=== PATIENT | male | born 1985 | race Caucasian/White ===

== ENCOUNTER 2017-04-25 17:16 | Inpatient (IN) | payer OTHER, MEDICAID ==
[~2017-04-25] VITALS: Ht 167.6 cm; Wt 73.0 kg
--- NOTE | 2017-04-25 17:53 | NUR ---
ADMISSION NOTE Received patient from [facility] via gurney, received report from ISAK JAVIER. Patient admitted with diagnosis of HYPOSPADIAS, POSSIBLE UTI, POSSIBLE PENILE INFECTION. Patient oriented to hospital routine, call light, toileting and safety-patient verbalized understanding.
[2017-04-25 18:00] VITALS: BP_SYST 199
--- NOTE | 2017-04-25 18:22 | NUR ---
CONSULTATION PAGED REASON FOR CONSULTATION:PENILE LACAERATION WAS CONSULT CALLED?:Y PERSON WHO WAS NOTIFIED:ANDRÉS CONSULTING PHYSICIAN:ASHLY LUCIANO (WILNER BLANCHARD SLITTER SCORER CUT OFF OPERATOR) EYE CLINIC MANAGER SPECIALTY:UROLOGY EYE CLINIC MANAGER PHONE NUMBER:[phone] REQUESTING PHYSICIAN:ROD CRUZ
[2017-04-25] MEDS ORDERED: POTASSIUM CHLORIDE 10 MEQ TAB.PRT.SR PO PRN (18:30)
[2017-04-25] MEDS ORDERED: ACETAMINOPHEN 325 MG TABLET PO PRN (18:30)
[2017-04-25] MEDS ORDERED: MAGNESIUM SULFATE 50 ML IV PRN (18:30)
[2017-04-25] MEDS ORDERED: HYDR-4100 PO (18:44)
[2017-04-25] MEDS ORDERED: METO25TA6 PO (18:44)
[2017-04-25] MEDS ORDERED: CAT.2 PO (18:44)
[2017-04-25] MEDS ORDERED: LORA-259 PO (18:44)
[2017-04-25] MEDS ORDERED: DULO60CA41 PO (18:44)
[2017-04-25] MEDS ORDERED: SEVE800T8 PO (18:44)
[2017-04-25] MEDS ORDERED: GABA-531 PO (18:44)
[2017-04-25 18:54] LABS: BASOPHILS # (AUTO) 0.1 K/uL (0.0-0.2); BASOPHILS % (AUTO) 0.8 % (0.0-2.0); EOSINOPHILS # (AUTO) 0.5 K/uL (0.0-0.4); EOSINOPHILS % (AUTO) 4.3 % (0.0-4.0); HEMATOCRIT 36.4 % (36-54); HEMOGLOBIN 11.8 g/dL (14.0-18.0); LYMPHOCYTES # (AUTO) 1.4 K/uL (1.0-5.5); LYMPHOCYTES % (AUTO) 12.3 % (20.5-51.5); MEAN CORPUSCULAR HEMOGLOBIN 28 pg (27-31); MEAN CORPUSCULAR HGB CONC 32 % (32-36); MEAN CORPUSCULAR VOLUME 87 fL (79.0-98.0); MONOCYTES # (AUTO) 0.9 K/uL (0.0-1.0); MONOCYTES % (AUTO) 8.3 % (1.7-9.3); NEUTROPHILS # (AUTO) 8.5 K/uL (1.8-7.7); NEUTROPHILS % (AUTO) 74.3 % (40.0-70.0); PLATELET COUNT (AUTO) 444 K/uL (130-430); RED BLOOD CELL COUNT(AUTO) 4.16 MIL/uL (4.2-6.2); RED CELL DISTRIBUTION WIDTH 16.3 % (9.0-15.0); WHITE BLOOD COUNT (AUTO) 11.4 K/uL (4.8-10.8)
[2017-04-25 18:59] LABS: CALCIUM 9.2 mg/dL (8.4-11.0); CREATININE 5.83 mg/dL (0.55-1.30)
[2017-04-25] MEDS ORDERED: cloNIDine HCL 0.2 MG TABLET PO PRN (19:00)
[2017-04-25 19:04] LABS: ALBUMIN 2.3 g/dL (3.4-4.8); TOTAL BILIRUBIN 0.4 mg/dL (0.0-1.0); TOTAL PROTEIN, SERUM 7.5 g/dL (6.4-8.3)
[2017-04-25 19:23] LABS: POTASSIUM 5.8 mmol/L (3.5-5.1)
[2017-04-25 20:00] VITALS: BP_SYST 176
--- NOTE | 2017-04-25 20:00 | NUR ---
Rounds Received patient lying in bed c/o severe pain to penis area and left leg. B/P elevated. IV site checked need new IV access due to IV cath was out. Explained to patient that i need to insert new IV line, patient verbalizes understanding. Instructed patient to call nurse when getting out of bed, call light within reach, bed alarm on.
--- NOTE | 2017-04-25 20:05 | NUR ---
IV RE-INSERTION: IV cath out. Restarted on Left hand. Successful after x1 attempts. Will observe for any signs of infiltration.
[2017-04-25] MEDS: MORPHINE 4 MG/ML INJ. SYRINGE IVP PRN ×2 (20:09→23:47)
[2017-04-25] MEDS: cloNIDine HCL 0.2 MG TABLET PO PRN (20:41)
--- NOTE | 2017-04-25 20:41 | NUR ---
B/P 176/116, Hr 73 Patient B/P 176/116, Hr 73 prn clonidine and schedule Lopressor given will monitor. patient c/o pain at this time, no acute distress noted.
[2017-04-25] MEDS: cefTRIAXone 1 GM in D5W 50 ML IV SCH (20:56)
[2017-04-25] MEDS ORDERED: METOPROLOL TARTRATE 25 MG TABLET PO SCH (21:00)
--- NOTE | 2017-04-25 21:03 | NUR ---
C/O itching Patient c/o itching informed Dr Reid new order received to give Benadryl 25mg po Q6hour prn for itching. and also informed Dr Reid regarding latest lab result, call Dr Culp (nephro) per Dr Reid.
--- NOTE | 2017-04-25 21:04 | NUR ---
CONSULTATION PAGED REASON FOR CONSULTATION:END STAGE RENAL WAS CONSULT CALLED?:Y PERSON WHO WAS NOTIFIED:SENTHIL CONSULTING PHYSICIAN:DOCTOR BARCENAS ( DOCTOR ALAN IS WATER TAXI CAPTAIN) DYE MAKER SPECIALTY:NEPHRO DYE MAKER PHONE NUMBER: REQUESTING PHYSICIAN:
[2017-04-25] MEDS: DIPHENHYDRAMINE HCL 25 MG CAPSULE PO PRN (21:08)
--- NOTE | 2017-04-25 22:00 | NUR ---
Medication First dose Rocephin IVPB completed no adverse reaction noted. will monitor.
[2017-04-25] MEDS ORDERED: hydrALAZINE HCL 25 MG TABLET PO ONE (22:30)
--- NOTE | 2017-04-25 22:44 | NUR ---
Notes Informed Dr Miranda (Nephro) regarding Lab result order received to call [facility] dialysis nurse in a.m. Charge nurse and hothouse worker made aware.
[2017-04-25 23:40] VITALS: BP_SYST 199
--- NOTE | 2017-04-26 00:10 | NUR ---
Dr Reid Informed Dr Reid that patient is diabetic and patient requesting for blood sugar check order received to do accu check ac and hs and regular insulin with sliding scale.
--- NOTE | 2017-04-26 00:10 | NUR ---
B/P elevated Patient B/P 180/111, Hr 67 hydralazine given per MD order. Dr Reid made aware of patient elevated b/p. will continue to monitor.
--- NOTE | 2017-04-26 00:23 | NUR ---
Blood sugar Blood sugar checked per patient request. Blood sugar 172. snack provided per patient request. patient ate 100% turkey sandwich and cracker. will monitor.
[2017-04-26] MEDS: INSULIN REGULAR, HUMAN 100 UNITS/ML, 10 ML VIAL (novoLIN R) SUBCUT PRN ×5 (00:28→21:16)
[2017-04-26] MEDS: MORPHINE 4 MG/ML INJ. SYRINGE IVP PRN ×5 (03:06→17:33)
[2017-04-26] MEDS: DIPHENHYDRAMINE HCL 25 MG CAPSULE PO PRN ×2 (03:16→21:20)
[2017-04-26] MEDS: cloNIDine HCL 0.2 MG TABLET PO PRN (03:16)
--- NOTE | 2017-04-26 03:19 | NUR ---
Blood pressure patient B/P 166/101 Hr 63 Clonidine given will monitor for effectiveness.
[2017-04-26 03:44] VITALS: BP_SYST 156
--- NOTE | 2017-04-26 04:33 | NUR ---
Rounds Patient resting quietly, call light within reach.
[2017-04-26] MEDS: hydrALAZINE HCL 25 MG TABLET PO SCH ×3 (05:58→21:17)
--- NOTE | 2017-04-26 06:13 | NUR ---
Blood sugar Patient blood sugar 60 apple juice and cracker given patient ate 100%. will check blood sugar later. no acute distress noted.
--- NOTE | 2017-04-26 07:06 | NUR ---
Re-checked blood sugar Re-checked patient blood sugar it went up to 84. informed Dr Reid regarding low blood sugar new order received hypoglycemia protocol. Charge nurse made aware.
[2017-04-26] MEDS ORDERED: D5W 1,000 ML IV PRN (07:12)
[2017-04-26] MEDS ORDERED: GLUCOSE 15 GM GEL (in 37.5 GM TUBE) PO PRN ×2 (07:15)
[2017-04-26] MEDS ORDERED: DEXTROSE 50% JECT 50 ML DISP.SYRIN IVP PRN ×2 (07:15)
[2017-04-26 07:33] LABS: CALCIUM 8.8 mg/dL (8.4-11.0); CREATININE 6.39 mg/dL (0.55-1.30); POTASSIUM 5.6 mmol/L (3.5-5.1)
[2017-04-26 07:37] LABS: BASOPHILS # (AUTO) 0.1 K/uL (0.0-0.2); BASOPHILS % (AUTO) 1.1 % (0.0-2.0); EOSINOPHILS # (AUTO) 0.6 K/uL (0.0-0.4); EOSINOPHILS % (AUTO) 5.7 % (0.0-4.0); HEMATOCRIT 31.7 % (36-54); HEMOGLOBIN 10.2 g/dL (14.0-18.0); LYMPHOCYTES % (AUTO) 20.4 % (20.5-51.5); MEAN CORPUSCULAR HEMOGLOBIN 28 pg (27-31); MEAN CORPUSCULAR HGB CONC 32 % (32-36); MEAN CORPUSCULAR VOLUME 88 fL (79.0-98.0); MONOCYTES # (AUTO) 0.9 K/uL (0.0-1.0); MONOCYTES % (AUTO) 9.7 % (1.7-9.3); NEUTROPHILS % (AUTO) 63.1 % (40.0-70.0); PLATELET COUNT (AUTO) 349 K/uL (130-430); RED BLOOD CELL COUNT(AUTO) 3.61 MIL/uL (4.2-6.2); RED CELL DISTRIBUTION WIDTH 16.5 % (9.0-15.0); WHITE BLOOD COUNT (AUTO) 9.6 K/uL (4.8-10.8)
--- NOTE | 2017-04-26 07:50 | NUR ---
INITIAL NOTE RECEIVED PATIENT FROM SUPERVISOR NATURAL GAS PLANT NURSE, PATIENT IS CURRENTLY RESTING IN BED, NO SIGNS OF DISTRESS NOTED, BREATHING IS EVEN AND UNLABORED, ASSESSMENT COMPLETE, PATIENT HAS RIGHT UPPER CHEST VANI CATH FOR DIALYSIS ACCESS, PATIENT HAS LEFT SIDE BKA, RIGHT FOOT WOUND, WOUND CARE DONE PER SUPERVISOR NATURAL GAS PLANT NURSE, INSTRUCTED PATIENT TO USE CALL HUSTON IF ASSISTANCE IS NEEDED, PATIENT VERBALIZED UNDERSTANDING, CALL HUSTON LEFT IN PATIENT'S HAND, BED IN LOWEST POSITION, SIDE RAILS UP, FALL PRECAUTIONS IN PLACE, WILL CONTINUE TO MONITOR.
[2017-04-26 08:00] VITALS: BP_SYST 108
--- NOTE | 2017-04-26 08:47 | NUR ---
Nutrition Update Bran Scale 15 noted. Pt admitted for hypospadia. Diet: renal standard BMI: 25.8 kg/m2 RD to follow per nutrition care standards.
[2017-04-26] MEDS: METOPROLOL TARTRATE 25 MG TABLET PO SCH ×2 (09:00→21:13)
--- NOTE | 2017-04-26 09:00 | NUR ---
MEDICATION PATIENT DID NOT RECEIVED BLOOD PRESSURE MEDICATION BECAUSE PATIENT IS TO RECEIVED DIALYSIS AROUND 10AM
--- NOTE | 2017-04-26 09:28 | NUR ---
CONSULTATION FOLLOW UP REASON FOR CONSULTATION:PENILE LACAERATION WAS CONSULT CALLED?Y PERSON WHO WAS NOTIFIED:EDWARD CONSULTING PHYSICIAN:ASHLY LUCIANO PARTS SALES ADVISOR SPECIALTY:UROLOGY PARTS SALES ADVISOR PHONE NUMBER:[phone] ORDERING PHYSICIAN:ROD CRUZ
--- NOTE | 2017-04-26 10:08 | NUR ---
RENAL DOCTOR SHAMIR [place] KIDNEY SPECIALIST CALLED AT [phone]WONG ALVARADO CHRISTOPHER WEARING APPAREL ASSEMBLER.
--- NOTE | 2017-04-26 10:40 | NUR ---
RN ROUNDS DIALYSIS NURSE IS HERE TO DO DIALYSIS, PATIENT IN STABLE CONDITION, WILL CONTINUE TO MONITOR, FALL PRECAUTIONS IN PLACE.
--- NOTE | 2017-04-26 11:00 | NUR ---
DR. JACKELIN BENÍTEZ HERE TO SEE PATIENT, STATED THAT PATIENT CAN BE SEEN OUTPATIENT, NO EMERGENT NEED FOR CONSULT
--- NOTE | 2017-04-26 11:28 | NUR ---
RN ROUNDS PATIENT RESTING IN BED, GETTING HEMODIALYSIS, IN STABLE CONDITION, WILL CONTINUE TO MONITOR, FALL PRECAUTIONS IN PLACE.
[2017-04-26] MEDS ORDERED: COMMUNICATION ORDER XX ONE (11:45)
[2017-04-26] MEDS ORDERED: HEPARIN SODIUM, PORCINE 10,000 UNITS/ 10 ML VIAL MC PRN (12:00)
[2017-04-26 12:39] VITALS: BP_SYST 127
--- NOTE | 2017-04-26 13:54 | NUR ---
RN ROUNDS PATIENT IS CURRENTLY RESTING IN BED, PATIENT IS STILL GETTING HEMODIALYSIS, PATIENT IN STABLE CONDITION, WILL CONTINUE TO MONITOR, FALL PRECAUTIONS IN PLACE.
--- NOTE | 2017-04-26 14:32 | NUR ---
RN ROUNDS PATIENT RECEIVED INSULIN LATE DUE TO PATIENT GETTING DIALYSIS AND NOT EATING, COVERED BS OF 164 AND GAVE PATIENT FOOD AND SNACKS, NO OTHER NEEDS AT THIS TIME, WILL CONTINUE TO MONITOR.
--- NOTE | 2017-04-26 15:00 | NUR ---
STRAIGHT CATHETER ATTEMPTED STRAIGHT CATHETER ON PATIENT, UNABLE TO GET URINE, WILL TRY AGAIN
--- NOTE | 2017-04-26 15:30 | NUR ---
STRAIGHT CATHETER CHARGE NURSE ATTEMPTED STRAIGHT CATHETER ON PATIENT TO COLLECT URINE FOR CULTURE AND DRUG SCREEN, UNABLE TO GET URINE
[2017-04-26 16:10] VITALS: BP_SYST 158
--- NOTE | 2017-04-26 16:15 | NUR ---
RN ROUNDS PATIENT LYING IN BED WATCHING CELL PHONE, MOTHER AT BEDSIDE, NO OTHER NEEDS AT THIS TIME, WILL CONTINUE TO MONITOR, FALL PRECAUTIONS IN PLACE.
[2017-04-26] MEDS: cefTRIAXone 1 GM in D5W 50 ML IV SCH (17:32)
--- NOTE | 2017-04-26 18:34 | NUR ---
CLOSING NOTE PATIENT RESTING IN BED, PATIENT HAS NO COMPLAINTS OF PAIN OR DISCOMFORT AT THIS TIME, ALL NEEDS MET, WILL ENDORSE PATIENT TO ASSISTANT OPERATOR NURSE, WILL ENDORSE TO NURSE THAT WE WERE NOT ABLE TO GET URINE FROM PATIENT SO PATIENT STILL NEEDS STRAIGHT CATHETER, CALL HUSTON LEFT NEXT TO PATIENT'S HAND, BED IN LOWEST POSITION, SIDE RAILS UP, BED ALARM ON, FALL PRECAUTIONS IN PLACE.
--- NOTE | 2017-04-26 19:10 | NUR ---
Initial Notes Received patient in bed, awake alert,oriented. No c/o pain or any distress noted. Blood pressure at 168/103, on heparin drip @ 10ml/hr. Tim cath noted to R upper chest. IV noted to L a/c g 22 flushing well and with good blood return. BUE are strong, L BKA noted. Discussed plan of care with patient and verbalized understanding. Call light in reach, will cont to monitor.
[2017-04-26 19:20] VITALS: BP_SYST 176
--- NOTE | 2017-04-26 20:45 | NUR ---
Foul smelling Urine Patient urinated foul smelling urine with pus. patient c/o 5/10 pain. Keturah care rendered. Will cont to monitor.
[2017-04-26] MEDS: ONDANSETRON HCL 4 MG/2 ML VIAL IVP PRN (21:10)
--- NOTE | 2017-04-26 21:10 | NUR ---
Initial Notes Assisted patient to commode and safely back to bed. Call light in reach, will cont to monitor.
[2017-04-26] MEDS: MORPHINE 2 MG/ML INJ. SYRINGE IVP PRN (21:12)
[2017-04-26] MEDS: MUPIROCIN 2% TOPICAL OINTMENT 22 GM TP SCH (21:13)
--- NOTE | 2017-04-26 23:10 | NUR ---
Rounds Patient is resting with eyes close at this time. No s/s of any distress noted. Call light in reach, will cont to monitor.
[2017-04-27] VITALS (9 sets, daily range): BP systolic 143–186
[2017-04-27] MEDS: MORPHINE 4 MG/ML INJ. SYRINGE IVP PRN ×5 (00:02→20:39)
--- NOTE | 2017-04-27 01:10 | NUR ---
ROUNDS Pt is resting comfortably in bed at this time. No c/o pain and no distress noted. Call light in reach, will cont to monitor.
--- NOTE | 2017-04-27 03:10 | NUR ---
ROUNDS Keturah care rendered. No c/o pain and no distress noted. Call light in reach, will cont to monitor.
[2017-04-27 03:40] LABS: BARBITURATE, URINE NEGATIVE (NEG <=200); BENZODIAZEPINE, URINE NEGATIVE (NEG <=150); CANNABINOID, URINE POSITIVE (NEG <=50); COCAINE, URINE NEGATIVE (NEG <=150); METHAMPHETAMINES SCREEN,URINE NEGATIVE (NEG <=500); OPIATE, URINE POSITIVE (NEG <=100); PHENCYCLIDINE SCREEN,URINE NEGATIVE (NEG <=25); UR TRICYCLIC ANTIDEPRESSANTS NEGATIVE (NEG <=300); URINE AMPHETAMINE NEGATIVE (NEG <=500); URINE METHADONE NEGATIVE (NEG <=200); URINE OXYCODONE SCREEN NEGATIVE (NEG <=100); URINE PROPOXYPHENE SCREEN NEGATIVE (NEG <=300)
[2017-04-27] MEDS: MORPHINE 2 MG/ML INJ. SYRINGE IVP PRN (04:03)
--- NOTE | 2017-04-27 05:10 | NUR ---
Rounds AM care rendered. No s/s of any distress noted. Call light in reach, will cont to monitor.
[2017-04-27] MEDS: hydrALAZINE HCL 25 MG TABLET PO SCH ×3 (06:10→21:53)
--- NOTE | 2017-04-27 06:52 | NUR ---
Final Rounds Patient is resting at this time . No s/s of any distress noted. All needs met and anticipated by nurses. Call light in reach, endorsed
[2017-04-27 07:41] LABS: BASOPHILS # (AUTO) 0.1 K/uL (0.0-0.2); BASOPHILS % (AUTO) 0.7 % (0.0-2.0); EOSINOPHILS # (AUTO) 0.3 K/uL (0.0-0.4); EOSINOPHILS % (AUTO) 2.9 % (0.0-4.0); HEMATOCRIT 30.5 % (36-54); HEMOGLOBIN 10.1 g/dL (14.0-18.0); LYMPHOCYTES # (AUTO) 1.7 K/uL (1.0-5.5); LYMPHOCYTES % (AUTO) 14.3 % (20.5-51.5); MEAN CORPUSCULAR HEMOGLOBIN 29 pg (27-31); MEAN CORPUSCULAR HGB CONC 33 % (32-36); MEAN CORPUSCULAR VOLUME 87 fL (79.0-98.0); MONOCYTES # (AUTO) 1.2 K/uL (0.0-1.0); MONOCYTES % (AUTO) 10.1 % (1.7-9.3); NEUTROPHILS # (AUTO) 8.5 K/uL (1.8-7.7); PLATELET COUNT (AUTO) 344 K/uL (130-430); RED BLOOD CELL COUNT(AUTO) 3.51 MIL/uL (4.2-6.2); RED CELL DISTRIBUTION WIDTH 15.8 % (9.0-15.0); WHITE BLOOD COUNT (AUTO) 11.8 K/uL (4.8-10.8)
[2017-04-27] MEDS ORDERED: HYDROmorphone 2 MG TAB PO PRN (07:45)
[2017-04-27 07:54] LABS: CALCIUM 8.4 mg/dL (8.4-11.0); CREATININE 5.28 mg/dL (0.55-1.30); POTASSIUM 5.1 mmol/L (3.5-5.1)
--- NOTE | 2017-04-27 08:10 | NUR ---
medication note patient morning medication administered. patient educated on side effects. patient verbalizes understanding. medication well tolerated no adverse effects noted. continue to monitor
[2017-04-27] MEDS: DIPHENHYDRAMINE HCL 25 MG CAPSULE PO PRN ×3 (08:16→15:57)
[2017-04-27] MEDS: MUPIROCIN 2% TOPICAL OINTMENT 22 GM TP SCH ×3 (08:18→21:00)
[2017-04-27] MEDS: METOPROLOL TARTRATE 25 MG TABLET PO SCH ×2 (08:18→21:53)
--- NOTE | 2017-04-27 08:27 | NUR ---
Initial note Received report from night nurse. Patient in resting quietly in bed. Patient not in acute distress. Initial assessment and vital signs WNL. Patient has murphy cath on right upper chest for dialysis access, left side Below knee amputation, right foot wound, night nurse reports providing care. Call light within reach, bed at lowest position. Continue to monitor Addendum: 04/27/17 at 0839 by Erica Loaiza RN wrong time correct time 07:30
--- NOTE | 2017-04-27 09:40 | NUR ---
pain medication patient given pain medication. patient educated on side effects. patients verbalizes understanding. patient in bed watching phone. wound nurse in doing wound care on right heel wound. patient has no complaints at this time. call light on reach and bed lowest position. continues to monitor
--- NOTE | 2017-04-27 10:20 | NUR ---
WOUND EVALUATION: Wound Consult received from Dr. Reid. Thank you, Dr. Reid, for the consult. Patient received in a Jeffrey Bed with a mattress, awake, alert, and oriented. Patient is unable to turn independently. Bran Score is a 16. Past Medical History: Penile Laceration, status post Hypospadias repair with Ulceration, Diabetes Mellitus out of control, End-Stage Renal Disease, and Hypertension. Recent Labs: WBC 11.8, RBC 3.51, Hgb 10.1, Hct 30.5, Na 133, BUN 41, Creat 5.28, GFR 13, Gluc 122. Intrinsic factors that delay wound healing: Diabetes Mellitus. Extrinsic factors that delay wound healing: Decreased mobility. Microbiology: Urine Culture in progress. Blood Culture x 2 in progress. MRSA Screen results negative. Wound Assessment: 1. Right Lateral Heel: Unstageable Pressure Ulcer, present on admission. Wound bed is 100% yellow slough. No odor, no drainage. Keturah-wound intact. Surrounding tissue has dry, flaky skin, and dark discoloration. Wound measures 0.7 cm x 1.2 cm x 0.6 cm. Recommend: Cleanse wound with normal saline. Place moisture barrier cream onto keturah-wound. Put Venelex ointment onto wound bed. Cover with foam dressing. Perform wound care daily, and as needed for dressing soiling or dislodgement. Also recommend: Encourage and assist patient with repositioning every 2 hours with pillow support, and off-load pressure areas with pillows for pressure re-distribution. Offload, elevate and float right heel with pillows at all times. Perform skin care and monitor skin integrity Q shift. Use moisture barrier cream on buttocks and other moisture susceptible areas QID and as needed for soiling. Recommend surgical consult for right heel.
--- NOTE | 2017-04-27 10:44 | NUR ---
Rounds patient resting in bed with eyes closed. no signs of acute distress. continue to monitor
--- NOTE | 2017-04-27 12:44 | NUR ---
PAIN MEDICATION PATIENT GIVEN PAIN MEDICATION. PATIENT EDUCATED ON SIDE EFFECTS. PATIENT VERBALIZES UNDERSTANDING. PATIENT TAKING LUNCH. PATIENTS INDICATES NO OTHER NEEDS AT THIS TIME. CALL LIGHT WITHIN REACH. BED AT LOWEST POSITION CONTINUES TO MONITOR.
[2017-04-27] MEDS ORDERED: BALSAM PERU/CASTOR OIL 60 GM OINT...G. TP PRN (14:00)
--- NOTE | 2017-04-27 14:50 | NUR ---
RN ROUNDS PATIENT IN BED WATCHING PHONE. PATIENT NOT IN DISTRESS. PATIENT AFTERNOON MEDICATIONS GIVEN. PATIENT EDUCATED ON SIDE EFFECTS. PATIENT VERBALIZES UNDERSTANDING. PATIENT CALL LIGHT WITHIN REACH. FALL PRECAUTIONS IN PLACE. BED LOWEST POSITION. WILL CONTINUE TO MONITOR
--- NOTE | 2017-04-27 15:41 | NUR ---
WOUND CARE NOTE WOUND CARE DONE PER WOUND CARE ORDERS, PATIENT TOLERATED WELL
[2017-04-27] MEDS: cloNIDine HCL 0.2 MG TABLET PO PRN ×2 (15:57→21:54)
--- NOTE | 2017-04-27 16:15 | NUR ---
pain medication Patient given pain medication. patient educated on side effects. patient verbalizes understanding. will continue to monitor
[2017-04-27] MEDS: cefTRIAXone 1 GM in D5W 50 ML IV SCH (17:37)
[2017-04-27] MEDS: INSULIN REGULAR, HUMAN 100 UNITS/ML, 10 ML VIAL (novoLIN R) SUBCUT PRN (17:41)
--- NOTE | 2017-04-27 17:49 | NUR ---
Medication note Patient antibiotic and insulin given. adverse effects explained to the patient. Patient verbalizes understanding. Patient having dinner. Call light within reach. bed at lowest position. continue to monitor
--- NOTE | 2017-04-27 18:51 | NUR ---
Closing note Patient in bed with eyes open watching phone. No S&S of acute distress noted this shift. All patient needs met during this shift. Safety precautions in place. Bed in lowest position. call light within reach.
--- NOTE | 2017-04-27 20:00 | NUR ---
Assumed care of pt this pm/maintenance supervisor 2nd shift;Assess as charted;pt c/o sharp stabbing pain to left thigh & penis;no additional signs of distress noted
[2017-04-27] MEDS ORDERED: METOPROLOL TARTRATE 25 MG TABLET ONE (21:45)
[2017-04-27] MEDS: ZOLPIDEM TARTRATE 5 MG TABLET PO PRN (21:51)
--- NOTE | 2017-04-27 22:00 | NUR ---
pt resting quietly;pt is requesting staff call MD to change pain med to IV Dilaudid because morphine is not working well although pt rates pain at 3/10 after receiving IV morphine;discussed what pt meant by morphine not working;pt stated "pain comes back";dis- cussed pain cycle & duration of medication effectiveness
[2017-04-28] MEDS: MORPHINE 4 MG/ML INJ. SYRINGE IVP PRN ×2 (00:20→23:01)
--- NOTE | 2017-04-28 01:13 | NUR ---
pt care rounds conducted hourly;pt resting intermittently;resp remain even & reg,no signs/symptoms of new or acute distress observed;have has several discussions w/pt re:medications ordered & schedule;report given & care surrendered to ISAK Maynard
[2017-04-28] MEDS: LORazepam 2 MG/ML VIAL IVP PRN (01:15)
[2017-04-28] MEDS: DIPHENHYDRAMINE HCL 25 MG CAPSULE PO PRN ×3 (01:15→18:59)
--- NOTE | 2017-04-28 01:15 | NUR ---
Received Endorsement of Patient Received endorsement of patient. Patient resting in bed, awake, alert. Patient denies any acute distress or pain at this time. Breathing is even and unlabored on room air. IV site patent/clean/dry. Patient refusing assessment of genitals and foot wound at this time, stating dressings were recently changed. Educated patient on use of call light for assistance and fall precautions, patient verbalized understanding. Call light in hand, will continue to monitor.
[2017-04-28 03:01] VITALS: BP_SYST 148
--- NOTE | 2017-04-28 04:10 | NUR ---
Rounds Patient resting in bed with eyes closed. No acute distress noted, breathing is even and unlabored. Call light in hand, fall precautions in place, will continue to monitor.
[2017-04-28] MEDS: hydrALAZINE HCL 25 MG TABLET PO SCH ×3 (05:48→23:05)
--- NOTE | 2017-04-28 06:33 | NUR ---
Closing Notes Patient resting in bed with eyes closed, easily aroused. Patient denies any acute distress or pain at this time. Breathing is even and unlabored. IV site patent/clean/dry, no S/S infection/infiltration noted. Patient refused dressing change for wound this morning, educated patient on importance, patient continue to refuse, stating he wants to sleep. Needs addressed throughout shift. Call light in hand, fall precautions in place. Will continue to monitor for changes and safety, and endorse all patient care/needs to oncoming nurse.
[2017-04-28 08:00] VITALS: BP_SYST 118
--- NOTE | 2017-04-28 08:00 | NUR ---
NOTE PT SITTING UP IN BED EATING HIS BREAKFAST AT THIS TIME. LEFT IV SITE BENIGN AND PATENT AT THIS TIME. NO SOB/RESP DISTRESS OR PAIN/DISCOMFORT WAS NOTED. CALL LIGHT WITHIN REACH.
[2017-04-28 08:20] LABS: BASOPHILS # (AUTO) 0.1 K/uL (0.0-0.2); BASOPHILS % (AUTO) 0.8 % (0.0-2.0); CALCIUM 8.5 mg/dL (8.4-11.0); CREATININE 7.11 mg/dL (0.55-1.30); EOSINOPHILS # (AUTO) 0.4 K/uL (0.0-0.4); EOSINOPHILS % (AUTO) 3.2 % (0.0-4.0); HEMATOCRIT 29.2 % (36-54); HEMOGLOBIN 9.4 g/dL (14.0-18.0); LYMPHOCYTES # (AUTO) 1.8 K/uL (1.0-5.5); LYMPHOCYTES % (AUTO) 13.7 % (20.5-51.5); MEAN CORPUSCULAR HEMOGLOBIN 28 pg (27-31); MEAN CORPUSCULAR HGB CONC 32 % (32-36); MEAN CORPUSCULAR VOLUME 86 fL (79.0-98.0); MONOCYTES # (AUTO) 1.3 K/uL (0.0-1.0); MONOCYTES % (AUTO) 9.9 % (1.7-9.3); NEUTROPHILS # (AUTO) 9.6 K/uL (1.8-7.7); NEUTROPHILS % (AUTO) 72.4 % (40.0-70.0); PLATELET COUNT (AUTO) 376 K/uL (130-430); RED BLOOD CELL COUNT(AUTO) 3.38 MIL/uL (4.2-6.2); RED CELL DISTRIBUTION WIDTH 15.7 % (9.0-15.0); WHITE BLOOD COUNT (AUTO) 13.2 K/uL (4.8-10.8)
[2017-04-28 08:23] LABS: POTASSIUM 6.3 mmol/L (3.5-5.1)
[2017-04-28] MEDS: METOPROLOL TARTRATE 25 MG TABLET PO SCH ×2 (08:39→23:04)
[2017-04-28] MEDS: MORPHINE 2 MG/ML INJ. SYRINGE IVP PRN ×3 (08:41→18:59)
[2017-04-28] MEDS: MUPIROCIN 2% TOPICAL OINTMENT 22 GM TP SCH ×4 (08:43→23:06)
--- NOTE | 2017-04-28 10:00 | NUR ---
NOTE PT'S HEMODIALYSIS IS BEING STARTED AT THIS TIME. PT WAS GIVEN PAIN IVP MEDICATION REQUESTED AND SCHEDULED AT THIS TIME. DR MC AT BEDSIDE, PT'S QUESTIONS/CONCERNS WERE ANSWERED AT THIS TIME. ORDER FOR DC TELE UNIT WAS GIVEN AND CARRIED OUT AT THIS TIME. PT RESTING IN BED. CALL LIGHT WITHIN REACH.
--- NOTE | 2017-04-28 11:45 | NUR ---
NOTE PT RESTING IN BED WITH DIALYSIS ON GOING. TELE UNIT OFF AND RETURNED TO CAREER ADVISOR. PT WAS GIVEN BENADRYL PO REQUESTED AND SCHEDULED. NO NEEDS NOTED. CALL LIGHT WITHIN REACH.
--- NOTE | 2017-04-28 12:24 | NUR ---
Consult was called Re: Pain Management spoke with Gely from Dr. Rodriguez office .
[2017-04-28 13:03] VITALS: BP_SYST 124
[2017-04-28] MEDS: INSULIN REGULAR, HUMAN 100 UNITS/ML, 10 ML VIAL (novoLIN R) SUBCUT PRN ×2 (13:03→23:14)
--- NOTE | 2017-04-28 14:00 | NUR ---
NOTE PT'S HEMODIALYSIS WAS COMPLETED. PT SITTING UP IN BED EATING HIS LUNCH. PAIN TOLERABLE AT THIS TIME. NO NEEDS NOTED. CALL LIGHT WITHIN REACH.
--- NOTE | 2017-04-28 14:15 | NUR ---
Consult was called Re:Pain Management spoke with Ayah from Dr.Mehta Abrams office .
--- NOTE | 2017-04-28 14:27 | NUR ---
NOTE DR MC WAS NOTIFIED THAT DR Yanely OLIVARES UNABLE TO SEE PT TILL MONDAY, FOR PAIN MANAGEMENT CONSULT.
--- NOTE | 2017-04-28 16:00 | NUR ---
NOTE PT FINISHED HIS LUNCH TRAY AND NOW WITH ASSISTANCE PT ON BSC AT THIS TIME. NO SOB/RESP DISTRESS OR SEVERE PAIN/DISCOMFORT WAS NOTED. CALL LIGHT WITHIN REACH.
[2017-04-28 17:07] VITALS: BP_SYST 197
[2017-04-28] MEDS: cefTRIAXone 1 GM in D5W 50 ML IV SCH (17:25)
[2017-04-28] MEDS: DOCUSATE SODIUM 100 MG CAPSULE PO PRN (17:53)
[2017-04-28] MEDS: cloNIDine HCL 0.2 MG TABLET PO PRN ×2 (17:53→23:57)
--- NOTE | 2017-04-28 18:10 | NUR ---
NOTE PT WAS GIVEN COLACE PO FOR BOWEL MOVEMENT. PT STATED HE HAD BOWEL MOVEMENT YESTERDAY IN BSC. TODAY JUST FEELING UNCOMFORTABLE - FEELING OF GAS DISCOMFORT MAINLY. PT ENCOURAGED TO MOVE IN BED SIDE TO SIDE FREQUENTLY TOLERATED TO HELP PASS GAS. IV IN LEFT AC INTACT AND PATENT AT THIS TIME. NO SOB/RESP DISTRESS OR SEVERE PAIN/DISCOMFORT NOTED AT THIS TIME. CALL LIGHT WITHIN REACH.
[2017-04-28 19:00] VITALS: BP_SYST 162
[2017-04-28] MEDS: ONDANSETRON HCL 4 MG/2 ML VIAL IVP PRN (19:04)
[2017-04-28 20:00] VITALS: BP_SYST 162
[2017-04-29] VITALS (10 sets, daily range): BP systolic 146–205
[2017-04-29] MEDS: ZOLPIDEM TARTRATE 5 MG TABLET PO PRN (02:59)
[2017-04-29] MEDS: MORPHINE 4 MG/ML INJ. SYRINGE IVP PRN ×5 (03:19→18:03)
[2017-04-29] MEDS: hydrALAZINE HCL 25 MG TABLET PO SCH ×3 (05:12→21:13)
[2017-04-29 07:59] LABS: BASOPHILS # (AUTO) 0.1 K/uL (0.0-0.2); BASOPHILS % (AUTO) 0.7 % (0.0-2.0); EOSINOPHILS # (AUTO) 0.5 K/uL (0.0-0.4); EOSINOPHILS % (AUTO) 4.3 % (0.0-4.0); HEMATOCRIT 29.2 % (36-54); HEMOGLOBIN 9.5 g/dL (14.0-18.0); LYMPHOCYTES % (AUTO) 16.2 % (20.5-51.5); MEAN CORPUSCULAR HEMOGLOBIN 28 pg (27-31); MEAN CORPUSCULAR HGB CONC 32 % (32-36); MEAN CORPUSCULAR VOLUME 88 fL (79.0-98.0); MONOCYTES # (AUTO) 1.5 K/uL (0.0-1.0); MONOCYTES % (AUTO) 12.8 % (1.7-9.3); PLATELET COUNT (AUTO) 357 K/uL (130-430); RED BLOOD CELL COUNT(AUTO) 3.33 MIL/uL (4.2-6.2); RED CELL DISTRIBUTION WIDTH 15.8 % (9.0-15.0); WHITE BLOOD COUNT (AUTO) 12.1 K/uL (4.8-10.8)
--- NOTE | 2017-04-29 08:00 | NUR ---
opening notes, pt in bed, c/o pain, will medicate, bp elevated at 152/83. iv access intact and patent. call light in reach, bed in low position. will continue to monitor.
[2017-04-29] MEDS: METOPROLOL TARTRATE 25 MG TABLET PO SCH ×2 (08:03→21:04)
[2017-04-29] MEDS: MUPIROCIN 2% TOPICAL OINTMENT 22 GM TP SCH ×3 (08:06→21:15)
[2017-04-29] MEDS: DIPHENHYDRAMINE HCL 25 MG CAPSULE PO PRN ×2 (08:06→14:15)
[2017-04-29 08:16] LABS: CALCIUM 8.8 mg/dL (8.4-11.0); CREATININE 5.24 mg/dL (0.55-1.30); POTASSIUM 4.4 mmol/L (3.5-5.1)
[2017-04-29] MEDS ORDERED: HYDR-1115 PO (09:56)
[2017-04-29] MEDS ORDERED: LEVO250T20 PO (09:56)
[2017-04-29] MEDS ORDERED: METO-442 PO (09:56)
--- NOTE | 2017-04-29 11:05 | NUR ---
rounding notes, pt called for pain medications. given pain, meds, call light in reach. bed in low position. will cont to monitor.
[2017-04-29] MEDS: cloNIDine HCL 0.2 MG TABLET PO PRN ×2 (11:06→17:27)
--- NOTE | 2017-04-29 15:33 | NUR ---
rounding notes, pt in bed, all request and needs met at this time. no c./o pain, no sob. no distress. told pt that i will work on his discharge papers now,. will cont to monitor.
--- NOTE | 2017-04-29 17:22 | NUR ---
checked pt's bs it was 148, no coverage given, pt's blood sugar earlier was 158 but pt c/o later that he does not feel well, thus blood sugar was rechecked. sbp was 182. clonidine was given. will monitor patient.
[2017-04-29] MEDS: cefTRIAXone 1 GM in D5W 50 ML IV SCH (17:28)
[2017-04-29] MEDS: DOCUSATE SODIUM 100 MG CAPSULE PO PRN (18:03)
--- NOTE | 2017-04-29 18:10 | NUR ---
new iv started on r ac # 22 for pt c/o pain during infusion of abx. will cont to monitor. this time is talking to his mother and is crying on the phone. will cont to monitor.
--- NOTE | 2017-04-29 18:25 | NUR ---
paged paged for Dr Reid, dialed . left a voice message for Dr Reid.
--- NOTE | 2017-04-29 18:31 | NUR ---
paged dr herrera to make aware of the pt's bp, called back and gave new order for clonidine and to dc pt when bp drops after the extra dose of clonidine.
[2017-04-29] MEDS ORDERED: cloNIDine HCL 0.2 MG TABLET PO ONE (18:45)
--- NOTE | 2017-04-29 18:45 | NUR ---
extra dose of clonidine given as ordered. family at bedside. will endorse to night rn.
[2017-04-29] MEDS ORDERED: cloNIDine HCL 0.2 MG TABLET ONE (18:47)
--- NOTE | 2017-04-29 18:58 | NUR ---
CLOSING NOTES, PT'S BP WAS HIGH THIS PM , WAS GIVEN CLONIDINE NEEDEED AND DR MC WAS MADE AWARE. ANOTHER DOSE OF CLONIDINE GIVEN. PER MD DC PATIENT WHEN BP GOES DOWN. WILL ENDORSE TO NIGHT RN.
[2017-04-29] MEDS: INSULIN REGULAR, HUMAN 100 UNITS/ML, 10 ML VIAL (novoLIN R) SUBCUT PRN (21:13)
--- NOTE | 2017-04-29 22:15 | NUR ---
HELD DISCHARGE HOME: CALLED AND SPOKE WITH DR. MC THAT PT'S BP STILL ELEVATED 205/109 HR 68 DESPITE AFTER GIVING LOPRESSOR AND HYDRALAZINE PO. PER MD ORDER HOLD DISCHARGE AND CALL RENAL DOCTOR. TROYN AWARE.
--- NOTE | 2017-04-29 22:15 | NUR ---
paged paged for Dr Culp, dialed . s/w Sydni, stated that Dr Hastings is on-call.
--- NOTE | 2017-04-29 22:15 | NUR ---
paged paged for Dr Reid, dialed . picked up call.
--- NOTE | 2017-04-29 22:18 | NUR ---
SHAMIR RENAL MD: PAGED AND SPOKE WITH DR. TIERRA CINTRON PT'S ELEVATED BP. ORDER REC'D FOR LABETALOL 20MG IVP Q4 SBP >160. WILL CARRY OUT.
[2017-04-29] MEDS ORDERED: LABETALOL 100 MG/ 20ML VIAL IVP PRN (22:45)
--- NOTE | 2017-04-29 23:20 | NUR ---
PT ANXIOUS PT ANXIOUS AND CRYING OUT LOUD. PT REQUESTED TO CALL MOTHER TO STAY WITH HIM. PT CALLED HIS MOM ON CELLPHONE TO TRY TO CONSOLE PT. MEDICATED PT WITH ATIVAN 2MG IVP NEEDED. PT REQUESTING TO HAVE OXYGEN ON. INFORMED PT SATTING AT 100% ON ROOM AIR. EMOTIONAL SUPPORT PROVIDED NEEDED. WILL CONTINUE TO MONITOR PT.
[2017-04-29] MEDS: LORazepam 2 MG/ML VIAL IVP PRN (23:23)
[2017-04-30] VITALS (8 sets, daily range): BP systolic 118–197
--- NOTE | 2017-04-30 03:00 | NUR ---
RN ROUNDS; PT AWAKE, MOM AT BEDSIDE. PT C/O (PHANTOM) PAIN ON L. LEG 04/20. MEDICATED WITH MORPHINE 2MG IVP NEEDED. BP ELEVATED 178/113 HR 63 O2 SAT 100% 2L NC. MEDICATE WITH BP MED ORDERED. CALL LIGHT WITHIN REACH. TO MONITOR.
[2017-04-30] MEDS: MORPHINE 2 MG/ML INJ. SYRINGE IVP PRN ×3 (03:06→10:37)
[2017-04-30] MEDS: ZOLPIDEM TARTRATE 5 MG TABLET PO PRN (03:43)
[2017-04-30] MEDS: DIPHENHYDRAMINE HCL 25 MG CAPSULE PO PRN ×2 (03:43→11:32)
--- NOTE | 2017-04-30 06:30 | NUR ---
Closing Note: Pt asleep, easily arousable. Pt BP still elevated 179/102 HR 80, medicated with hydralazine as schedule and for c/o pain Morphine 2mg ivp. R. FA 22 clear, patent. Call light within reach. To endorse to AM nurse.
[2017-04-30] MEDS: hydrALAZINE HCL 25 MG TABLET PO SCH ×2 (06:34→14:11)
[2017-04-30] MEDS: INSULIN REGULAR, HUMAN 100 UNITS/ML, 10 ML VIAL (novoLIN R) SUBCUT PRN (06:45)
[2017-04-30 06:59] LABS: BASOPHILS # (AUTO) 0.1 K/uL (0.0-0.2); BASOPHILS % (AUTO) 0.6 % (0.0-2.0); EOSINOPHILS # (AUTO) 0.6 K/uL (0.0-0.4); EOSINOPHILS % (AUTO) 5.6 % (0.0-4.0); HEMATOCRIT 30.5 % (36-54); HEMOGLOBIN 9.8 g/dL (14.0-18.0); LYMPHOCYTES # (AUTO) 1.4 K/uL (1.0-5.5); LYMPHOCYTES % (AUTO) 13.7 % (20.5-51.5); MEAN CORPUSCULAR HEMOGLOBIN 28 pg (27-31); MEAN CORPUSCULAR HGB CONC 32 % (32-36); MEAN CORPUSCULAR VOLUME 88 fL (79.0-98.0); MONOCYTES # (AUTO) 1.1 K/uL (0.0-1.0); MONOCYTES % (AUTO) 10.7 % (1.7-9.3); NEUTROPHILS # (AUTO) 7.2 K/uL (1.8-7.7); NEUTROPHILS % (AUTO) 69.4 % (40.0-70.0); PLATELET COUNT (AUTO) 380 K/uL (130-430); RED BLOOD CELL COUNT(AUTO) 3.48 MIL/uL (4.2-6.2); RED CELL DISTRIBUTION WIDTH 15.1 % (9.0-15.0); WHITE BLOOD COUNT (AUTO) 10.4 K/uL (4.8-10.8)
--- NOTE | 2017-04-30 07:14 | NUR ---
OPENING NOTE PATIENT RESTING COMFORTABLY, PATIENT HAS NO NOTABLE SIGNS OF DISTRESS AT THIS TIME. PATIENT HAS BEDSIDE COMMODE FOR EASE OF USE, PATIENT HAS AMPUTATED LEFT LEG BELOW KNEE BUT IS ABLE TO MOVE TO BEDSIDE COMMODE WITHOUT DIFFICULTY. PATIENTS IV SALINE LOCK PER MD ORDERS. PATIENTS BED IN LOWEST POSITION, CALL LIGHT WITHIN REACH, AND SIDE RAILS ARE UP FOR SAFETY. WILL CONTINUE TO MONITOR PATIENT FOR CHANGES IN STATUS.
[2017-04-30 07:48] LABS: CALCIUM 8.9 mg/dL (8.4-11.0); CREATININE 6.59 mg/dL (0.55-1.30); POTASSIUM 4.3 mmol/L (3.5-5.1)
[2017-04-30] MEDS: METOPROLOL TARTRATE 25 MG TABLET PO SCH (08:34)
[2017-04-30] MEDS: MUPIROCIN 2% TOPICAL OINTMENT 22 GM TP SCH ×2 (08:53→14:12)
[2017-04-30] MEDS ORDERED: NIFEDIPINE 60 MG TABLET.SA (PROCARDIA XL 60 MG) PO SCH (09:00)
--- NOTE | 2017-04-30 12:45 | NUR ---
BEN DC PLANNING: HOME HEALTH FOR WOUND CARE CM SPOKE WITH PATIENT WHO STATED HE DOES NOT REMEMBER THE NAME OF HOME HEALTH AGENCY THAT VISITS HIM IN THE HOME. HE STATED HIS MOTHER MAY KNOW THE INFORMATION; BUT, HE IS NOT SURE IF HIS MOTHER IS HOME OR IF SHE WENT WITH HIS FATHER TO HELP OUT WITH THE WORK TODAY. CM INFORMED Pt OF CALL TO MOTHER TO OBTAIN THIS INFORMATION; AND, THAT HE CAN WAIT FOR HIS FATHER TO GET OFF WORK TO COME TO HOSPITAL TO PICK HIM UP FOR DC HOME TODAY. 1310: CM CONTACTED Pt's MOTHER/VERÓNICA WHO STATED SHE DID HAVE THE INFORMATION; SHE WOULD GET IT AND CALL BACK TO CM. MOTHER ALSO STATED SHE HAS BEEN SICK; AND, WAS UNABLE TO VISIT YESTERDAY OR TODAY. CM EXPLAINED FATHER CAN SWISS TYPE SCREW MACHINE OPERATOR Pt TO TAKE HOME WHEN HE IS OFF WORK TODAY. ACCORDING TO Pt FATHER GOES TO [employer]ET ON SUNDAYS; SO, LIKELY WILL BE ABLE TO COME AFTER 5-6 P.M. 1317: MOTHER/VERÓNICA CALLED BACK; PROVIDED NAME OF ONE OF NURSES/[facility] WHO VISITS Pt IN HOME. ARTUR's CONTACT #: [phone]. CM CONTACT ARTUR TO CALL BACK WITH NAME OF AGENCY AND PHONE NUMBER; LEFT MESSAGE ARTUR DID NOT ANSWER PHONE. IF CM UNABLE TO GET NAME OF HOME HEALTH FOR DC PAPERWORK TODAY; Pt STATED HE WILL NOTIFY AGENCY VIA TEXT OR IN A.M. ABOUT HIS DC FROM HOSPITAL TODAY AND THEY CAN RESUME VISITS AT HIS HOME Pt ALSO STATED THAT WOUND CARE MD VISITS HIM AT HOME EVERY MONDAY.
[2017-04-30] MEDS: LORazepam 2 MG/ML VIAL IVP PRN (15:15)
--- NOTE | 2017-04-30 15:15 | NUR ---
NOTE PATIENT IS HAVING INCREASED ANXIETY AND TEARFULNESS. PATIENT IS NERVOUS ABOUT GOING HOME. CONCERNED ABOUT BLOOD PRESSURE AND OVERALL HEALTH. PATIENT GIVEN ANXIETY MEDICATION. PATIENT EDUCATED THAT HIS BLOOD PRESSURE IS WITHIN NORMAL LIMITS. HE WILL GO HOME TO GET DIALYSIS TOMORROW. HE IS CLEARED FROM MEDICAL STANDPOINT. PATIENT PROVIDED REASSURANCE. PATIENT RESTING COMFORTABLY.
--- NOTE | 2017-04-30 16:34 | NUR ---
NOTE SPOKE WITH MOTHER, VERÓNICA REGARDING DISCHARGE TIMING. PATIENT TO BE DISCHARGED BETWEEN [phone]. PATIENTS FAMILY TO PROVIDE RIDE. GIVEN HOME HEALTH NURSE PHONE NUMBER TO GIVE TO CASE MANAGEMENT. [phone].
--- NOTE | 2017-04-30 17:32 | NUR ---
1600 NOTE PATIENT RESTING COMFORTABLY, PATIENT RECEIVED IV ATIVAN FOR CALMING, PATIENT SLEEPING, AROUSES TO VERBAL STIMULI. PATIENT HAS NO NOTABLE SIGNS OF DISTRESS AT THIS TIME. PATIENT HAS BEDSIDE COMMODE FOR EASE OF USE, PATIENT HAS AMPUTATED LEFT LEG BELOW KNEE BUT IS ABLE TO MOVE TO BEDSIDE COMMODE WITHOUT DIFFICULTY. PATIENTS IV SALINE LOCK PER MD ORDERS. PATIENTS BED IN LOWEST POSITION, CALL LIGHT WITHIN REACH, AND SIDE RAILS ARE UP FOR SAFETY. WILL CONTINUE TO MONITOR PATIENT FOR CHANGES IN STATUS.
--- NOTE | 2017-04-30 17:40 | NUR ---
NOTE PATIENT REFUSED IV MEDICATION AND BLOOD SUGAR. STATES HE IS GOING HOME AND WOULD LIKE TO REST. PATIENT LETHARGIC AFTER ATIVAN ADMINISTRATION.
[2017-04-30] MEDS: cefTRIAXone 1 GM in D5W 50 ML IV SCH (18:15)
--- NOTE | 2017-04-30 18:24 | NUR ---
CLOSING NOTE PATIENT DISCHARGE COMPLETE, IV REMOVED WITH NO ACTIVE BLEEDING NOTED. PATIENT ID BAND REMOVED. PATIENT RESTING COMFORTABLY, SELF REPOSITIONED TO THE RIGHT. PATIENT LETHARGIC AFTER ATIVAN ADMINISTRATION. PATIENT WAITING FOR FAMILY ARRIVAL FOR DISCHARGE. DISCHARGE PAPERWORK REVIEWED WITH PATIENT, PHONE NUMBER PROVIDED TO CASE MANAGEMENT REGARDING HOME HEALTH. PATIENT VERBALIZED UNDERSTANDING OF MEDICATION RECONCILIATION. PATIENT WAS GIVEN COPY OF DISCHARGE PAPERWORK. WILL REVIEW WITH FAMILY AT ARRIVAL IF BY THE END OF THE SHIFT. AWAITING REPORT TO BE GIVEN TO [employer] NURSE.
--- NOTE | 2017-04-30 19:20 | NUR ---
NOTE PATIENT DISCHARGED WITH FAMILY BY WHEELCHAIR TO PERSONAL VEHICLE. BELONGINGS SENT WITH PATIENT.
--- NOTE | 2017-05-01 09:33 | NUR ---
DISCHARGE PLANNING Per note from weekend CM called [facility] [phone] home health nurse who stated patient been ongoing service with [facility] [phone]. Faxed home health order. Will follow up. Addendum: 05/01/17 at 0944 by Cee Trinh DP Per intake dept will resume start of care today.
== END 2017-04-30 19:25 | disposition home health service (06) | DRG 729 ==
LOC: SMU 18:25 → STU 20:11 → SMU 04-28 10:04
PROVIDERS: ADMIT General Practice; ATTEND General Practice
PROC: 5A1D60Z (ICD-10-PCS; principal; 2017-04-26)
DX: S31.21XA Laceration without foreign body of penis, initial encounter (principal); N18.6 End stage renal disease; N17.0 Acute kidney failure with tubular necrosis; E44.0 Moderate protein-calorie malnutrition; E11.22 Type 2 diabetes mellitus with diabetic chronic kidney disease; F11.20 Opioid dependence, uncomplicated; E11.51 Type 2 diabetes mellitus with diabetic peripheral angiopathy without gangrene; I12.0 Hypertensive chronic kidney disease with stage 5 chronic kidney disease or end stage renal disease; N39.0 Urinary tract infection, site not specified; E11.65 Type 2 diabetes mellitus with hyperglycemia; D63.1 Anemia in chronic kidney disease; E11.319 Type 2 diabetes mellitus with unspecified diabetic retinopathy without macular edema; F12.20 Cannabis dependence, uncomplicated; F17.210 Nicotine dependence, cigarettes, uncomplicated; H54.8 Legal blindness, as defined in USA; Z91.19 Patient's noncompliance with other medical treatment and regimen; Q54.9 Hypospadias, unspecified; Z89.512 Acquired absence of left leg below knee; Z99.2 Dependence on renal dialysis; Z68.26 Body mass index [BMI] 26.0-26.9, adult
CPT/HCPCS: 36415; 73502; 80048; 80053; 80307; 82962; 83735-TC; 85025; 87040-TC; 87081; 87086; 90935; 90937; J0696; J1644; J1815; J2060; J2270; J2405; J3490; J7030; J7040; J7060; Q0163